=== PATIENT | male | born 1945 | race Caucasian/White ===

== ENCOUNTER → 2018-07-23 | Outpatient (CLI) | payer OTHER ==
[~2018-07-23] MED LIST: ASPIRIN325 PO; ATORVASTATIN CA40 MG PO; COZAAR 50 MG TA50 M2 PO; EFFIENT10 MG PO; TOPROL XL50 MG PO
== END ==
LOC: NUC 11:35
DX: I25.10 Atherosclerotic heart disease of native coronary artery without angina pectoris (principal); E78.5 Hyperlipidemia, unspecified; I10 Essential (primary) hypertension; Z87.891 Personal history of nicotine dependence

== ENCOUNTER → 2019-08-09 | Outpatient (CLI) | payer OTHER ==
--- NOTE | 2019-08-09 15:58 | 2DMMODE ---
[facility] [place] [address] 2 D/M-MODE ECHOCARDIOGRAM Name: TIA MORALES Room #: REG [facility]#: [id number] Admission: 08/09/19 Attend Phys: Bonifacio Abel MD Discharge: Date of : 45 Report #: [id number] THIS REPORT FOR: //name// ADDENDUM APPROVED REPORT Study performed: 08/09/2019 14:56:42 EXAM: Comprehensive 2D, Doppler, and color-flow Echocardiogram Patient Location: Out-Patient Status: routine BSA: 2.17 HR: 51 bpm BP: 134/72 mmHg Rhythm: NSR Other Information Study Quality: Adequate Indications HTN, CAD. Hx: MD, stent, Vtach, HLP. 2D Dimensions RVDd: 33.32 mm IVSd: 9.86 (7-11mm) LVOT Diam: 22.96 (18-24mm) LVDd: 59.00 mm PWd: 9.74 (7-11mm) Ascending Ao: 36.18 (22-36mm) LVDs: 46.35 (25-40mm) Aortic Root: 40.79 mm Volumes Left Atrial Volume (Systole) Single Plane 4CH: 44.55 mL Single Plane 2CH: 54.66 mL LA ESV Index: 24.00 mL/m2 Aortic Valve AoV Peak Ildefonso.: 1.09 m/s AO Peak Gr.: 4.75 mmHg LVOT Max P.62 mmHg LVOT Max V: 1.07 m/s JAIME Vmax: 4.08 cm2 Mitral Valve E/A Ratio: 0.8 MV Decel. Time: 484.96 ms [facility] [address] [place] [address] 2 D/M-MODE ECHOCARDIOGRAM Name: TIA MORALES Room #: REG [facility]#: [id number] Admission: 08/09/19 Attend Phys: Bonifacio Abel MD Discharge: Date of : 45 Report #: [id number] MV E Max Ildefonso.: 0.46 m/s MV A Ildefonso.: 0.57 m/s MV PHT: 140.64 ms IVRT: 106.11 ms Pulmonary Valve PV Peak Ildefonso.: 0.88 m/s PV Peak Gr.: 3.07 mmHg Pulmonary Vein P Vein S: 0.64 m/s P Vein A: 0.26 m/s P Vein D: 0.43 m/s P Vein A Dur.: 138.4 msec P Vein S/D Ratio: 1.49 Tricuspid Valve TR Peak Ildefonso.: 2.89 m/s RAP Estimate: 5.00 mmHg TR Peak Gr.: 33.37 mmHg PA Pressure: 38.00 mmHg Left Ventricle Left ventricle is mildly dilated. Hypokinesis of the lateral wall. There is normal left ventricular wall thickness. Left ventricular systolic function is mildly decreased. LVEF is 45%. Mild diastolic dysfunction is present (impaired relaxation pattern). Right Ventricle The right ventricle is normal size. The right ventricular systolic function is normal. Atria The left atrium size is normal. The right atrium size is normal. Aortic Valve The aortic valve is normal in structure. Trace aortic regurgitation. There is no aortic valvular stenosis. Mitral Valve The mitral valve is normal in structure. Trace to mild mitral regurgitation. Tricuspid Valve The tricuspid valve is normal in structure. Mild tricuspid regurgitation. Estimated PAP is 35-40mmHg. Pulmonic Valve The pulmonary valve is normal in structure. Mild to moderate pulmonic [facility] [address] [place] [address] 2 D/M-MODE ECHOCARDIOGRAM Name: CARMENTIA JUN Room #: REG [facility].#: [id number] Admission: 08/09/19 Attend Phys: Bonifacio Abel MD Discharge: Date of : 45 Report #: [id number] regurgitation. Great Vessels Aortic root is mildly dilated. The ascending aorta is normal in size. IVC is normal in size and collapses >50% with inspiration. Pericardium There is no pericardial effusion. <Conclusion> Left ventricle is mildly dilated. There is normal left ventricular wall thickness. Left ventricular systolic function is mildly decreased, hypokinesis of the lateral. LVEF is 45%. Mild diastolic dysfunction is present (impaired relaxation pattern). The right ventricle is normal size. The left atrium size is normal. Trace aortic regurgitation. Trace to mild mitral regurgitation. Mild tricuspid regurgitation. Estimated PAP is 35-40mmHg. <ELECTRONICALLY SIGNED> By: Bonifacio Abel MD 08/09/19 [id number] Bonifacio Abel MD /INF
== END ==
LOC: CV 11:43
DX: I10 Essential (primary) hypertension (principal); I25.10 Atherosclerotic heart disease of native coronary artery without angina pectoris; I25.2 Old myocardial infarction; Z95.5 Presence of coronary angioplasty implant and graft; E78.5 Hyperlipidemia, unspecified

== ENCOUNTER → 2021-06-27 | Outpatient (CLI) | payer OTHER | LOC: SJCVC 13:36 | PROVIDERS: ATTEND Internal Medicine Cardiovascular Disease | DX: R94.31 Abnormal electrocardiogram [ECG] [EKG] (principal); R00.1 Bradycardia, unspecified; I25.10 Atherosclerotic heart disease of native coronary artery without angina pectoris; I10 Essential (primary) hypertension; E78.00 Pure hypercholesterolemia, unspecified; R60.9 Edema, unspecified; Z88.0 Allergy status to penicillin; Z79.82 Long term (current) use of aspirin; Z79.899 Other long term (current) drug therapy; Z87.891 Personal history of nicotine dependence ==

== ENCOUNTER → 2021-07-27 | Outpatient (CLI) | payer OTHER | LOC: SJCVCIMAG 07:11 | PROVIDERS: ATTEND Internal Medicine Cardiovascular Disease | DX: I25.9 Chronic ischemic heart disease, unspecified (principal); I47.2 Ventricular tachycardia; I25.10 Atherosclerotic heart disease of native coronary artery without angina pectoris; I10 Essential (primary) hypertension; E78.00 Pure hypercholesterolemia, unspecified; R60.9 Edema, unspecified; Z88.0 Allergy status to penicillin; Z79.82 Long term (current) use of aspirin; Z79.899 Other long term (current) drug therapy; Z87.891 Personal history of nicotine dependence ==